=== PATIENT | female | born 1995 | race American Indian/Alaskan Native ===

== ENCOUNTER 2020-06-10 12:45 | Outpatient (CLI) | payer MEDICAID | END 2020-06-10 17:02 | disposition home or self-care (01) | LOC: LAB 12:45 → APU 16:33 → LAB 17:02 | PROVIDERS: ATTEND Obstetrics & Gynecology | DX: O26.893 Other specified pregnancy related conditions, third trimester (principal); Z67.11 Type A blood, Rh negative; Z3A.35 35 weeks gestation of pregnancy | CPT/HCPCS: 86850; 86900; 86901; 96372; J2790 ==

== ENCOUNTER 2020-07-01 11:39 | Outpatient (CLI) | payer MEDICAID ==
[2020-07-01 12:21] VITALS: BP 102/61
== END 2020-07-01 15:34 | disposition home or self-care (01) ==
LOC: TRG 11:39 → APU 11:40 → TRG 15:34
PROVIDERS: ATTEND Obstetrics & Gynecology
DX: Z34.93 Encounter for supervision of normal pregnancy, unspecified, third trimester (principal); Z3A.36 36 weeks gestation of pregnancy
CPT/HCPCS: 36415; 84112

== ENCOUNTER 2020-07-02 20:41 | Outpatient (CLI) | payer MEDICAID | END 2020-07-02 21:48 | disposition home or self-care (01) | LOC: TRG 20:41 → APU 20:42 | CPT/HCPCS: 59025 ==

== ENCOUNTER 2020-07-03 16:47 | Outpatient (CLI) | payer MEDICAID ==
[2020-07-03] MEDS ORDERED: LACTATED RINGERS 1,000 ML IV SCH (17:15)
[2020-07-03 17:48] LABS: Hematocrit 34.7 % (30.3-42.9); Hemoglobin 11.9 gm/dl (10.1-14.3); Mean Corpuscular HGB Conc 34 % (30-34); Mean Corpuscular Volume 89 fl (79-97); Platelet Count 192 K/mm3 (140-440); Red Cell Distribution Width 13.2 % (13.2-15.2)
[2020-07-03 17:59] LABS: Bacteria,Urine 2+ /HPF (Negative); Bilirubin,Urine NEG (Negative); Blood,Urine MOD (Negative); Color,Urine Straw (Yellow); Mucus,Urine FEW /HPF; Protein,Urine <15 mg/dL mg/dL (Negative); Urobilinogen,Urine < 2.0 mg/dL (<2.0)
[2020-07-03 18:11] LABS: Alanine Aminotransferase 16 units/L (7-56); Uric Acid 4.8 mg/dL (3.5-7.6)
[2020-07-03 18:46] VITALS: BP 100/57
--- NOTE | 2020-07-03 19:03 | Ultrasound Report ---
CLINICAL DATA: well being TECHNICAL DATA: Document breath, motion, gestational age, tone, and fluid. FINDINGS: respiration, tone, and motion are well visualized and normal. Amniotic fluid volume is normal. Biophysical profile score is 8/8. The lower uterine segment is evaluated and there is no evidence of placenta previa. heart rate is Heart Rate. 135. Intrauterine NAY 13 IMPRESSION: The biophysical profile score is 8/8. NAY 13 Signer Name: Frankie Up MD Signed: 07/03/2020 6:59 PM Workstation Name: [id number]
== END 2020-07-03 18:48 | disposition home or self-care (01) ==
LOC: APU 16:47 → TRG 16:47
PROVIDERS: ATTEND Obstetrics & Gynecology
DX: Z34.93 Encounter for supervision of normal pregnancy, unspecified, third trimester (principal); Z3A.37 37 weeks gestation of pregnancy
CPT/HCPCS: 36415; 59025; 76815; 76819; 81001; 82565; 83615; 84450; 84460; 84550; 85027

== ENCOUNTER 2020-07-04 20:56 | Inpatient (IN) | payer MEDICAID ==
[2020-07-04] MEDS ORDERED: AMPICILLIN/NS 2 GM/100 ML 2 GM/100 ML BAG IV ONE (21:38)
[2020-07-04] MEDS ORDERED: ONDANSETRON 4 MG/2 ML INJ IV PRN (21:38)
[2020-07-04] MEDS ORDERED: ePHEDrine SULFATE 50 MG/1 ML INJ IV PRN ×2 (21:38→23:12)
[2020-07-04] MEDS ORDERED: fentaNYL 100 MCG/2 ML INJ IV PRN (21:38)
[2020-07-04] MEDS ORDERED: TERBUTALINE 1 MG/1 ML INJ SUB-Q PRN (21:38)
[2020-07-04] MEDS ORDERED: MINERAL OIL 30 ML ORAL LIQD PO PRN (21:38)
[2020-07-04] MEDS ORDERED: LIDOCAINE (2%) 20 MG/1 ML VIAL 20 ML MDV INFILTRATI ONE (21:38)
[2020-07-04] MEDS ORDERED: LACTATED RINGERS 1,000 ML IV SCH (21:45)
[2020-07-04] MEDS ORDERED: OXYTOCIN DRIP 30 UNITS/500 ML BAG IV SCH (22:00)
[2020-07-04 22:37] LABS: Hemoglobin 12.2 gm/dl (10.1-14.3); Mean Corpuscular HGB Conc 35 % (30-34); Mean Corpuscular Volume 89 fl (79-97); Platelet Count 204 K/mm3 (140-440); Red Blood Count 3.95 M/mm3 (3.65-5.03); Red Cell Distribution Width 13.4 % (13.2-15.2)
[2020-07-04] MEDS ORDERED: NALOXONE 2 MG/2 ML INJ IV PRN (23:12)
--- NOTE | 2020-07-04 23:13 | Anesthesia Consultation ---
Anesthesia Consult and Med Hx Date of service: 07/04/20 - Airway Anesthetic Teeth Evaluation: Good ROM Head & Neck: Adequate Mental/Hyoid Distance: Adequate Mallampati Class: Class II Intubation Access Assessment: Probably Good - Pulmonary Exam CTA: Yes - Cardiac Exam Cardiac Exam: RRR - Pre-Operative Health Status ASA Pre-Surgery Classification: ASA2 Proposed Anesthetic Plan: Epidural - Pulmonary Hx Asthma: No - Cardiovascular System Hx Hypertension: Yes (PIH 2017) - Central Nervous System Hx Seizures: No Hx Psychiatric Problems: Yes ( depression 2017) - Endocrine Hx Renal Disease: No Hx Hypothyroidism: No Hx Hyperthyroidism: No - Hematic Hx Anemia: No Hx Sickle Cell Disease: No - Other Systems Hx Alcohol Use: No
--- NOTE | 2020-07-04 23:32 | Progress Note ---
Labor Epidural - Labor Epidural Start Time: 23:18 Stop Time: 23:23 Performed by:: PUSHPA MANN Procedure: Patient is requesting epidural for labor pain. H&P, and labs reviewed. Procedure explained, questions answered, consent obtained. Patient in sitting position with blood pressure cuff and pulse ox on and working. Timeout performed immediately before start of procedure. Sterile chlorahexadine 0.5% prep/drape. 3 mL 1% lidocaine skin wheal at L[3]-L[4]. 18-gauge [employer] epidural needle advanced to [id number] with saline at [7] cm. 27-gauge spinal needle advanced until clear, free-flowing CSF. Intrathecal dexmedetomidine [5] mcg administered and needle removed. Epidural catheter advanced to [12] cm, negative aspiration for blood and csf, negative test dose 3 ml 1.5% lidocaine with epinephrine. Sterile steri-strips and tegaderm applied, followed by tape reinforcement. Patient tolerated procedure well.
[2020-07-04] MEDS ORDERED: fentaNYL-BUPIV 2 MCG/ML-0.125% 200 MCG/100 ML BAG EPIDURAL SCH (23:45)
[2020-07-05] MEDS ORDERED: OXYTOCIN 10 UNIT/1 ML INJ ONE (02:04)
--- NOTE | 2020-07-05 02:58 | History and Physical Report ---
History of Present Illness Date of examination: 07/05/20 Date of admission: 07/04/20 21:38 Chief complaint: I am having contractions History of present illness: Patient is a 24-year-old 3 para 0 who presents to triage at 37-2/7 weeks with complaint of contractions. Patient receives care at [facility] records are not available for review. Per the patient she was scheduled to be induced on Tuesday for reason she is unsure of. The patient's first child was a 26-week IUFD. Past History Past Medical History: no pertinent history Past Surgical History: no surgical history Social history: single - Obstetrical History Expected Date of Delivery: 07/24/20 Actual Gestation: 37 Week(s) 2 Day(s) : 3 Para: 1 Spontaneous Abortions: 1 Number of Living Children: 0 Medications and Allergies Allergies Allergy/AdvReac Type Severity Reaction Status Date / Time codeine Allergy Hives Verified 06/10/20 16:48 Active Meds: Active Medications Ephedrine Sulfate (Ephedrine Sulfate 50 Mg/1 Ml Inj) 10 mg IV Q2M PRN PRN Reason: Hypotension Fentanyl (Fentanyl 100 Mcg/2 Ml Inj) 100 mcg IV Q2H PRN PRN Reason: Pain,Severe (7-10) LABOR PAIN Last Admin: 07/04/20 22:20 Dose: 100 mcg Documented by: Lactated Ringer's (Lactated Ringers) 1,000 mls @ 125 mls/hr IV DIRECT KARL Last Admin: 07/04/20 22:51 Dose: 125 mls/hr Documented by: Oxytocin/Sodium Chloride (Pitocin/Ns 30 Unit/500ml) 30 units in 500 mls @ 40 mls/hr IV TITR KARL; Protocol Fentanyl/Bupivacaine/Sodium Chlor (Fentanyl-Bupiv 2 Mcg/Ml-0.125%) 200 mcg in 100 mls @ 12 mls/hr EPIDURAL TITR KARL; Protocol Mineral Oil (Mineral Oil 30 Ml Oral Liqd) 30 ml PO QHS PRN PRN Reason: Constipation Naloxone HCl (Naloxone 2 Mg/2 Ml Inj) 0.2 mg IV Q5M PRN PRN Reason: Respiratory sedation Ondansetron HCl (Ondansetron 4 Mg/2 Ml Inj) 4 mg IV Q8H PRN PRN Reason: Nausea And Vomiting Terbutaline Sulfate (Terbutaline 1 Mg/1 Ml Inj) 0.25 mg SUB-Q ONCE PRN PRN Reason: Hyperstimulation/Hypertonicity Review of Systems All systems: negative Constitutional: weight gain Gastrointestinal: abdominal pain Genitourinary: deferred Rectal Exam: deferred - Vital Signs Vital signs: Vital Signs Pulse BP 101 H 133/74 07/04/20 21:13 07/04/20 21:13 Temp Pulse Resp BP Pulse Ox 98.7 F 125 H 16 152/64 98 07/04/20 21:15 07/05/20 02:52 07/04/20 22:27 07/05/20 02:24 07/05/20 02:52 - Physical Exam Breasts: Cardiovascular: Regular rate, Normal S1, Normal S2 Lungs: Positive: Clear to auscultation, Normal air movement Abdomen: Positive: normal appearance, soft, normal bowel sounds. Negative: distention, tenderness Genitourinary (Female): Positive: normal external genitalia, normal perenium Vulva: both: normal Vagina: Positive: normal moisture. Negative: discharge Cervix: Negative: lesion, discharge Uterus: Positive: normal size, normal contour Adnexa: both: normal Anus/Rectum: Positive: normal perianal skin, heme negative. Negative: rectal mass, hemorrhoids Extremities: Deep Tendon Reflex Grade: Normal +2 - Obstetrical FHR: auscultation normal Cervical Dilatation: 5 Cervical Effacement Percentage: 90 station: -2 Uterine Contraction Pattern: Regular Uterine Tone Measurement Phase: Contraction Uterine Contraction Intensity: Moderate Results Result Diagrams: 07/04/20 22:00 Abnormal lab results 07/04/20 Range/Units 22:00 MCHC 35 H (30-34) % All other labs normal. Assessment and Plan IUP at 37-2/7 weeks in active labor admit for same. Treat with ampicillin due to GBS unknown status. Patient may have epidural when she desires it. Anticipate .
--- NOTE | 2020-07-05 03:06 | Procedure Note ---
OB Delivery Note - Delivery Date of Delivery: 07/05/20 Surgeon: MAGEN SMYTH Estimated blood loss: 200cc - Vaginal Delivery presentation: vertex Delivery position: OA Intrapartum events: none, foul smelling fluid Delivery induction: none Delivery monitor: external FHT, external uterine Route of delivery: Delivery placenta: spontaneous Delivery cord: 3 umbilical vessels Episiotomy: none Delivery laceration: 2nd degree, vaginal side wall Delivery repair: vicryl Anesthesia: local, epidural Delivery comments: Viable male delivered over intact perineum at 2:08 AM with nuchal cord that he delivered through. Apgars 8 and 9 weight 2325 g, 5 pounds 2 ounces. Placenta delivered spontaneously and intact with small cord it appeared to be two-vessel. Lacerations were repaired with 2-0 Vicryl. There was excellent hemostasis at end of this portion of the procedure. Patient tolerated procedure well. - Infant A at 1 minute: 8 at 5 minutes: 9 Infant Gender: Male
[2020-07-05] MEDS ORDERED: WITCH HAZEL/ GLYCERIN PAD TP PRN (05:13)
[2020-07-05] MEDS ORDERED: diphenhydrAMINE 25 MG CAP PO PRN (05:13)
[2020-07-05] MEDS ORDERED: PROMETHAZINE 25 MG RECT SUPP PR PRN (05:13)
[2020-07-05] MEDS ORDERED: MAGNESIUM HYDROXIDE (MOM) ORAL LIQD UDC PO PRN (05:13)
[2020-07-05] MEDS ORDERED: HYDROcodone/ACETAMINOPHEN 5-325 MG TAB PO PRN (05:13)
[2020-07-05] MEDS ORDERED: LANOLIN/ZINC/DIMETHICONE (LANSINOH) 7 GM TP PRN (05:13)
[2020-07-05] MEDS ORDERED: ONDANSETRON 4 MG/2 ML INJ IV PRN (05:13)
[2020-07-05] MEDS ORDERED: PROMETHAZINE 25 MG TAB PO PRN (05:13)
[2020-07-05] MEDS: PRENATAL VIT27-FE FUMARATE-FOLIC ACID VIT TAB PO SCH (09:06)
[2020-07-05] MEDS: DOCUSATE SODIUM 100 MG CAP PO SCH (09:07)
[2020-07-05 15:22] LABS: Hematocrit 29.4 % (30.3-42.9)
[2020-07-05 22:41] LABS: Hepatitis C Virus Antibody Non-Reactive (NonReactive)
[2020-07-06] MEDS: IBUPROFEN 600 MG TAB PO SCH ×2 (00:28→05:36)
[2020-07-06] MEDS: DOCUSATE SODIUM 100 MG CAP PO SCH ×3 (00:28→23:58)
[2020-07-06] MEDS: PRENATAL VIT27-FE FUMARATE-FOLIC ACID VIT TAB PO SCH (10:00)
--- NOTE | 2020-07-06 11:48 | Post Anesthesia Evaluation ---
- Post Anesthesia Evaluation Patient Participated: Yes Airway Patent: Yes Stable Respiratory Function: Yes Nausea/Vomiting: No Temp > 96.8F: Yes Pain Manageable: Yes Adequeate Hydration: Yes Anesthesia Complications: No Block Receding Appropriately: Yes
--- NOTE | 2020-07-06 17:39 | Progress Note ---
Assessment and Plan PPD 1 s/p . Doing well. Plan for discharge afte 48 hours due to unknown GBS status and 48 hour hold Subjective - Subjective Date of service: 07/06/20 Interval history: Patient is a 24-year-old 3 para 0 who presents to triage at 37-2/7 weeks with complaint of contractions. Patient receives care at [facility] records are not available for review. Per the patient she was scheduled to be induced on Tuesday for reason she is unsure of. The patient's first child was a 26-week IUFD. Patient reports: appetite normal, voiding normally, pain well controlled, ambulating normally : doing well Objective - Vital Signs Latest vital signs: Vital Signs Temp Pulse Resp BP BP Pulse Ox 07/06/20 08:00 98.0 F 90 18 128/89 07/06/20 06:36 18 07/06/20 05:36 18 07/06/20 01:28 18 07/06/20 00:28 18 07/05/20 23:33 98.1 F 105 H 20 119/69 98 Intake and Output 07/06/20 07/06/20 07/06/20 06:59 14:59 22:59 Intake Total 360 Balance 360 Intake: Oral 240 Intake, Free Water 120 Other: Total, Intake Amount 240 # Voids Void 1 - Exam Cardiovascular: Present: Regular rate, Normal S1, Normal S2 Lungs: Present: Clear to auscultation, Normal air movement Abdomen: Present: normal appearance, soft Uterus: Present: normal, firm Extremities: Present: normal
--- NOTE | 2020-07-07 08:38 | Progress Note ---
Assessment and Plan A: PPD#2 s/p at term Acute blood loss anemia Obesity P: Routine care RTC in 1 wk for a blood pressure check due to borderline BPs before delivery Subjective - Subjective Date of service: 07/07/20 Principal diagnosis: s/p at term , IUGR, h/o stillbirth Interval history: Pt without complaints this morning. Patient reports: appetite normal, voiding normally, pain well controlled, ambulating normally : doing well Objective - Vital Signs Latest vital signs: Vital Signs Temp Pulse Resp BP Pulse Ox 07/07/20 00:41 98 F 67 18 112/78 07/06/20 16:00 98.2 F 90 16 126/80 98 Intake and Output 07/06/20 07/07/20 07/07/20 22:59 06:59 14:59 Intake Total 360 600 Balance 360 600 Intake: Intake, Free Water 360 600 Other: # Voids Void 2 1 - Exam Breasts: Present: deferred Abdomen: Present: soft (obese ) Uterus: Present: fundal height below umbilicus Extremities: Present: edema (trace )
--- NOTE | 2020-07-07 08:40 | Discharge Summary ---
Providers - Providers Date of Admission: 07/04/20 21:38 Date of discharge: 07/07/20 Attending physician: ILDA DELA CRUZ 07/07/20 08:38 Consult to Energy Efficiency Engineer [CONS] Routine Reason For Exam: Primary care physician: ILDA DELA CRUZ Hospitalization Reason for admission: active labor Delivery: Procedure details: Please see delivery note Episiotomy: none Laceration: vaginal side wall, 2nd degree Other procedures: none complications: none Discharge diagnosis: IUP at term delivered baby: male Hospital course: Pt was admitted in labor and went on to have a spontaneous vaginal delivery which she tolerated well. Her course was uncomplicated and she met discharge criteria on PPD#2. She will follow up in 1 wk for a BP check. Condition at discharge: Stable Disposition: DC-01 TO HOME OR SELFCARE - Discharge Diagnoses (1) Term of male Status: Acute (2) Obesity Status: Acute Qualifiers: Obesity type: unspecified obesity type Obesity classification: adult class 2 (BMI 35 - 39.9) Serious obesity comorbidity presence: unspecified whether serious comorbidity present Body mass index: BMI 36.0-36.9 Qualified Code(s): E66.9 - Obesity, unspecified; Z68.36 - Body mass index [BMI] 36.0-36.9, adult (3) Acute blood loss anemia Status: Acute (4) IUGR (intrauterine growth restriction) Status: Acute Plan - Discharge Medications Prescriptions: Ibuprofen [Motrin] 600 mg PO Q6H PRN #30 tablet PRN Reason: Pain HYDROcodone/APAP 5-325 [[place] 5/325] 1 each PO Q6HR PRN #10 tablet PRN Reason: Pain - Provider Discharge Summary Activity: routine, no sex for 6 weeks, no heavy lifting 4 weeks, no strenuous exercise Diet: routine Instructions: routine Additional instructions: [] Smoking cessation referral if applicable(refer to patient education folder for contact #) [] Refer to [facility]'s [facility] Booklet Call your doctor immediately for: * Fever > 100.5 * Heavy vaginal bleeding ( >1 pad per hour) * Severe persistent headache * Shortness of breath * Reddened, hot, painful area to leg or breast * Drainage or odor from incision. * Keep incision clean and dry at all times and follow doctor's instructions regarding bathing/showering - Follow up plan Follow up: ILDA DELA CRUZ MD [Primary Care Provider] - 7 Days (Please schedule a BP check in 1 week Please schedule your son's circumcision before he is one month old. ) Forms: C Discharge Summary
[2020-07-07] MEDS ORDERED: BENZOCAINE/MENTHOL 20/0.5% TOP SPRAY 56 GM TP PRN (09:00)
[2020-07-07] MEDS: PRENATAL VIT27-FE FUMARATE-FOLIC ACID VIT TAB PO SCH (10:50)
[2020-07-07] MEDS: DOCUSATE SODIUM 100 MG CAP PO SCH (10:50)
[2020-07-07 12:54] VITALS: BP 119/58
== END 2020-07-07 11:50 | disposition home or self-care (01) | DRG 775 ==
LOC: TRG 20:56 → APU 21:05 → TRG 21:38 → LD 21:38 → OB 07-05 04:52
PROVIDERS: ADMIT Obstetrics & Gynecology; ATTEND Obstetrics & Gynecology
PROC: 3E0R3BZ Introduction of Anesthetic Agent into Spinal Canal, Percutaneous Approach (ICD-10-PCS; 2020-07-04)
PROC: 00HU33Z Insertion of Infusion Device into Spinal Canal, Percutaneous Approach (ICD-10-PCS; 2020-07-04)
PROC: 10E0XZZ Delivery of Products of Conception, External Approach (ICD-10-PCS; principal; 2020-07-05)
PROC: 0KQM0ZZ Repair Perineum Muscle, Open Approach (ICD-10-PCS; 2020-07-05)
DX: O99.214 Obesity complicating childbirth (principal); Z3A.37 37 weeks gestation of pregnancy; Z37.0 Single live birth; D62 Acute posthemorrhagic anemia; Z20.822 Contact with and (suspected) exposure to COVID-19; E66.9 Obesity, unspecified; O36.5930 Maternal care for other known or suspected poor fetal growth, third trimester, not applicable or unspecified; O99.03 Anemia complicating the puerperium; Z88.5 Allergy status to narcotic agent; O70.1 Second degree perineal laceration during delivery
CPT/HCPCS: 36415; 59025; 76815; 76819; 81001; 82565; 83615; 84112; 84450; 84460; 84550; 85014; 85018; 85027; 85461; 86592; 86706; 86762; 86803; 86850; 86870; 86900; 86901; 87806; 88307; 96360; 96361; 96372; 96374; G0378; J0290; J2590; J2790; J3010; J7120; U0003